=== PATIENT | female | born 1960 | race Caucasian/White ===

== ENCOUNTER 2018-10-28 10:41 | Inpatient (IN) | payer OTHER ==
[2018-10-28 12:41] LABS: Hemoglobin A1c 4.9 % (4.0-6.0)
[2018-10-28 12:47] LABS: Bilirubin Negative (Negative); Blood, Urine Negative (Negative); Clarity CLEAR (Clear); Glucose, Urine (Dipstick) Negative (Negative); Leukocyte Trace (Negative); Nitrite Positive (Negative); Protein, Urine (Dipstick) Negative (Neg-Trace); Specific Gravity, Urine 1.008 (1.002-1.036); Urobilinogen 0.2 mg/dL (0.2-1.0); pH, Urine 6.5 (5.0-9.0)
[2018-10-28 12:48] LABS: #Basophils 0.1 thou/uL (0.0-0.2); #Eosinphils 0.3 thou/uL (0.0-0.7); #Lymphocytes 2.6 thou/uL (1.20-3.40); #Monocytes 0.6 thou/uL (0.11-0.59); #Neutrophils 4.2 thou/uL (1.40-6.50); %Basophils 1.4 % (0.0-1.0); %Eosinophils 3.2 % (0.0-10.0); %Lymphocytes 33.4 % (21.0-51.0); Hemoglobin 13.5 g/dL (12.0-16.0); Mean Platelet Volume 8.8 fL (7.4-10.4); Platelet Count 255 thou/uL (130-400); RBC Distribution Width 13.1 % (11.5-14.5); Red Blood Cell (RBC) Count 3.98 mill/uL (4.20-5.40); White Blood Cell (WBC) Count 7.8 thou/uL (4.8-10.8)
[2018-10-28 12:53] LABS: Bacteria/HPF 4+ HPF (None Seen); Hyaline Casts/LPF 0-3 HYALINE CAST LPF (0-3 Hyaline); Pathc Cast-AUWi Flag 0.14 (0-2.49); RBC/HPF 0-3 HPF (0-3); Squamous Epithelial 0-3 HPF (0-3); WBC/HPF 0-3 HPF (0-3)
[2018-10-28 13:31] LABS: Albumin 3.5 g/dL (3.5-5.0)
[2018-10-28 13:32] LABS: Chloride 104 mmol/L (98-107); Potassium 4.3 mmol/L (3.5-5.1); Sodium 139 mmol/L (136-145)
[2018-10-28 13:33] LABS: Calcium 9.2 mg/dL (7.8-10.44); Magnesium 1.7 mg/dL (1.6-2.6)
[2018-10-28 13:34] LABS: Globulin 4.1 g/dL (2.4-3.5); Glucose 88 mg/dL (70-105); Protein, Total 7.6 g/dL (6.0-8.3)
[2018-10-28 13:35] LABS: Carbon Dioxide 22 mmol/L (22-29)
[2018-10-28 13:36] LABS: Anion Gap 17 mmol/L (10-20); Bilirubin, Total 0.7 mg/dL (0.2-1.2)
[2018-10-28 13:37] LABS: Alkaline Phosphatase 104 U/L (40-150); CRP (Inflammatory) Less than 0.50 mg/dL (= or < 0.5); Calc. Creatinine Clearance 0 mL/min (70-130); Estimated GFR-MDRD 72
[2018-10-28 13:38] LABS: BUN (Urea Nitrogen) 5 mg/dL (9.8-20.1)
[2018-10-28 13:39] LABS: AST (SGOT) 52 U/L (5-34)
[2018-10-28 13:40] LABS: ALT (SGPT) 22 U/L (8-55)
--- NOTE | 2018-10-28 14:36 | RAD ---
RIGHT TOES 3 VIEWS: HISTORY: Pain. COMPARISON: None. FINDINGS: Joint space is preserved. Mild degenerative change of the 1st metatarsophalangeal joint space. No f racture. No cortical irregularity or periosteal reaction. IMPRESSION: Mild degenerative change involving the 1st metatarsophalangeal joint. POS: JUN
--- NOTE | 2018-10-28 14:41 | RAD ---
LEFT GREAT TOE RADIOGRAPHS THREE VIEWS: Date: 10-28-18 Provided Clinical History: FINDINGS: There is a small focus of linear increased density within the soft tissues of the plantar aspect of t he forefoot in the region of the 2nd MTP joint which may reflect a foreign body. There is no evidence for fracture. Alignment appears anatomic. Degenerative changes are seen at the first MTP joint. IMPRESSION: Findings suspicious for foreign body at the plantar aspect of the second MTP joint. POS: JONE
[2018-10-28] MEDS ORDERED: Acetaminophen 325 MG TAB PO PRN (14:56)
[2018-10-28] MEDS ORDERED: Ondansetron ODT 4 MG TAB PO PRN (14:56)
--- NOTE | 2018-10-28 15:14 | PDOC.FPRHP ---
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 Reports previous ulcers with infection on L great toe, being followed by manager membership, Dr. Lyle. Went to his office 1 week ago for current b/l 2nd toe ulcers draining purulent fluid x3 months with gangrene and was told to come to ED. She is just now coming for evaluation. Denies pain. Reports L foot drop at baseline with spasticity, no change in weakness of b/l LE. Does report worsening sensation of b/l LE, not feeling L 1st and 2nd digit or R 1st digit with decreased sensation to remaining toes. No hx of DM. Current tobacco use 1 /2ppd for 40 years. Chronic drinker, 1 liter wine/day. - Allergies/Adverse Reactions Allergies Allergy/AdvReac Type Severity Reaction Status Date / Time No Known Allergies Allergy Verified 01/05/15 22:54 - Home Medications Medication Instructions Recorded Confirmed Type ALPRAZolam [Xanax] 0.5 mg PO PRN PRN 01/05/15 01/05/15 History Gabapentin 300 mg PO PRN PRN 01/05/15 01/05/15 History Metoprolol Tartrate [Lopressor] 100 mg PO DAILY 01/05/15 01/05/15 History buPROPion HCl [Wellbutrin XL] 300 mg PO DAILY 01/05/15 01/05/15 History Aspirin [Ecotrin Regular Strength] 325 mg PO DAILY #0 tab 01/07/15 Rx Atorvastatin Calcium [Lipitor] 80 mg PO QPM #0 tab 01/07/15 Rx Ciprofloxacin [Cipro] 500 mg PO 0600,2000 #0 tab 01/07/15 Rx Folic Acid [Folvite] 1 mg PO DAILY #0 tab 01/07/15 Rx Lisinopril [Zestril] 10 mg PO DAILY #0 tab 01/07/15 Rx Metoprolol Succinate [Toprol XL] 150 mg PO DAILY #0 tab 01/07/15 Rx Comments: Above meds are from last hospitalization- does not know current med doses and did not bring home meds. Reports only taking metoprolol, asa, and wellbutrin. - History PMHx: HTN Alcohol Abuse Peripheral Neuropathy Tobacco Abuse CVA (2016) PSHx: Knee surgery BTL FHx: none Social: ETOH- 1 liter wine per day, last drink yesterday Drug use- 1-2x/wk cannabis use Tobacco- 1/2ppd for 40 yrs Lives with in [place], independent with ADLs - Review of Systems General: denies: fever/chills, night sweats Eyes: denies: eye pain, vision changes ENT: denies: nasal congestion, rhinorrhea Respiratory: denies: cough, congestion, shortness of breath Cardiovascular: denies: chest pain, palpitation, edema, paroxysmal nocturnal dyspnea Gastrointestinal: denies: nausea, vomiting, diarrhea, constipation, abdominal pain Genitourinary: denies: incontinence, dysuria, polyuria Skin: reports: lesions. denies: rashes Musculoskeletal: denies: pain, tenderness, stiffness, swelling, arthritis/ arthralgias Neurological: reports: weakness. denies: numbness, syncope, seizure Psychological: reports: depression. denies: anxiety - Vital signs BP: 144/93 HR: 84 RR: 16 Tmax: 98.8 Pox: 97% on RA Wt: 77kg - Physical Exam Constitutional: NAD, awake, alert and oriented, well developed HEENT: normocephalic and atraumatic, PERRLA, EOMI, grossly normal hearing -HEENT: poor dentition, beefy red tongue Neck: supple Chest: no-tender to palpation Heart: RRR, normal S1/S2, no murmurs/rubs/gallops, pulses present, no edema -Heart: 2+ pedal pulses b/l Lungs: CTAB, no respiratory distress, good air movement Abdomen: soft, non-tender, bowel sounds present, no masses/distention, no hernias Musculoskeletal: normal structure, ROM grossly normal -Musculoskeletal: Spasticity of LLE, strength 5/5 b/l LE -Neurological: decreased sensation all b/l toes, with no sensation of L 1st, 2nd, and R 1st toe -Skin: interdiginous ulcerations of b/l 2nd toes weeping purulunt discharge, erythematous in color with defined borders at metacarpal-phalangeal joint line. Healing medial L great toe ulcer without drainage, mildly erythematous Heme/Lymphatic: no purpura, no petechia Psychiatric: normal mood and affect, intact recent and remote memory FMR H&P: Results - Labs Result Diagrams: 10/28/18 12:12 10/28/18 13:01 Lab results: WBC 7.8 thou/uL (4.8-10.8) 10/28/18 12:12 Hgb 13.5 g/dL (12.0-16.0) 10/28/18 12:12 Hct 39.9 % (36.0-47.0) 10/28/18 12:12 MCV 100.0 fL (78.0-98.0) H 10/28/18 12:12 Plt Count 255 thou/uL (130-400) 10/28/18 12:12 Neutrophils % 54.0 % (42.0-75.0) 10/28/18 12:12 ESR Westergren 43 mm/hr (Less than 30) 10/28/18 12:12 Sodium 139 mmol/L (136-145) 10/28/18 13:01 Potassium 4.3 mmol/L (3.5-5.1) 10/28/18 13:01 Chloride 104 mmol/L (98-107) 10/28/18 13:01 Carbon Dioxide 22 mmol/L (22-29) 10/28/18 13:01 BUN 5 mg/dL (9.8-20.1) L 10/28/18 13:01 Creatinine 0.81 mg/dL (0.6-1.1) 10/28/18 13:01 Glucose 88 mg/dL (70-105) 10/28/18 13:01 Calcium 9.2 mg/dL (7.8-10.44) 10/28/18 13:01 Total Bilirubin 0.7 mg/dL (0.2-1.2) 10/28/18 13:01 AST 52 U/L (5-34) H 10/28/18 13:01 ALT 22 U/L (8-55) 10/28/18 13:01 Alkaline Phosphatase 104 U/L (40-150) 10/28/18 13:01 C-Reactive Protein Less than 0.50 mg/dL (= or < 0.5) 10/28/18 13:01 Serum Total Protein 7.6 g/dL (6.0-8.3) 10/28/18 13:01 Albumin 3.5 g/dL (3.5-5.0) 10/28/18 13:01 Urine Ketones Negative mg/dL (Negative) 10/28/18 12:29 Urine Blood Negative (Negative) 10/28/18 12:29 Urine Nitrite Positive (Negative) H 10/28/18 12:29 Ur Leukocyte Esterase Trace (Negative) H 10/28/18 12:29 Urine RBC 0-3 HPF (0-3) 10/28/18 12:29 Urine WBC 0-3 HPF (0-3) 10/28/18 12:29 Ur Squamous Epith Cells 0-3 HPF (0-3) 10/28/18 12:29 Urine Bacteria 4+ HPF (None Seen) H 10/28/18 12:29 - Radiology Interpretation Other Status: image reviewed by me Additional comment: Xray of b/l toes- no apparent osteo, foreign body of L MTP joint. FMR H&P: A/P - Problem List (1) Gangrene of left foot Current Visit: Yes Status: Acute Code(s): I96 - GANGRENE, NOT ELSEWHERE CLASSIFIED (2) Foot ulcer Current Visit: Yes Status: Acute Code(s): L97.509 - NON-PRESSURE CHRONIC ULCER OTH PRT UNSP FOOT W UNSP SEVERITY (3) Peripheral neuropathy Current Visit: Yes Status: Acute Code(s): G62.9 - POLYNEUROPATHY, UNSPECIFIED (4) Depression Current Visit: No Status: Acute Code(s): F32.9 - MAJOR DEPRESSIVE DISORDER, SINGLE EPISODE, UNSPECIFIED (5) ETOH abuse Current Visit: No Status: Acute Code(s): F10.10 - ALCOHOL ABUSE, UNCOMPLICATED (6) Hyperlipidemia Current Visit: No Status: Acute Code(s): E78.5 - HYPERLIPIDEMIA, UNSPECIFIED (7) Hypertension Current Visit: No Status: Acute Code(s): I10 - ESSENTIAL (PRIMARY) HYPERTENSION (8) UTI (urinary tract infection) Current Visit: No Status: Acute (9) Tobacco abuse Current Visit: No Status: Acute Code(s): Z72.0 - TOBACCO USE (10) Cannabis abuse Current Visit: Yes Status: Acute Code(s): F12.10 - CANNABIS ABUSE, UNCOMPLICATED - Plan 58yo F with gangrene and b/l foot ulcers. Gangrene with infected b/l 2nd toe ulcers: 6mos onset, no previous abx treatment, appears infected with purulent drainage and surrounding cellulitis, no s/sx sepsis - consult Gen Sx for surgical evaluation - cx wound and start broad spec Abx, Vanc and Zosyn - SUSIE's to r/o blood flow issue - likely 2/2 neuropathy, ordered b12, folate, TUCKER, and RPR - Wound care consult Peripheral Neuropathy: Not on any home pain medication - continue to monitor for pain and do workup as above. - could be 2/2 chronic alcoholism Macrocytosis likely 2/2 Alcohol Abuse - b12, folate pending - ASE protocol in place, no hx of DT's - counseled on cessation - banana bag x1, then daily MV - consult regional refrigerated cdl truck driver HTN: - takes metoprolol at home, unk dose, awaiting med rec - monitor and continue home meds Tobacco Abuse: - prn nicotine patch - counseled on cessation Depression: - continue home wellbutrin HLD: - not currently taking any meds - restart high int statin Cannabis Abuse: - middle school counselor on cessation - UDS pending Hx of CVA with residual LUE and LLE deficit - continue daily ASA - restart statin IVF: LR at 100 Diet: NPO pending surgical eval Code: Full DVT PPx: Lovenox Dispo: Likely stay 2-3 days for surgical evaluation and cultures to result for optimal abx management. FMR H&P: Upper Level - Plan Date/Time: 10/28/18 1510 I, [], have evaluated this patient and agree with findings/plan as outlined by paid internship resident. Pertinent changes/additions are listed here.
[2018-10-28] MEDS ORDERED: Multivitamins, Adult 10 ML, Folic Acid 1 MG, Thiamine HCl 100 MG in Dextrose 5 %-0.45 %... IV SCH (15:15)
[2018-10-28 16:21] LABS: Syphilis Antibody Nonreactive (Nonreactive); Syphilis Antibody Index 0.07 S/CO (<1.00 Non-Reactive)
[2018-10-28] MEDS ORDERED: Piperacillin/Tazobactam 2.25 GM VIAL ONE (17:10)
[2018-10-28] MEDS: Lactated Ringer's 1,000 ML IV SCH (19:17)
[2018-10-28] MEDS: Nicotine 14 MG PATCH TD SCH (19:17)
[2018-10-28] MEDS: Vancomycin HCl 1 GM in Premix Bag 1 BAG IVPB SCH (19:17)
[2018-10-28 19:27] LABS: Amphetamine Not Detected (NotDetected); Barbiturates Screen Not Detected (NotDetected); Benzodiazepine Screen Not Detected (NotDetected); Cocaine Metabolite Screen Not Detected (NotDetected); Medtox Control Line Valid? VALID (VALID); Medtox Reader # READER 1; Methadone Not Detected (NotDetected); Methamphetamine Not Detected (NotDetected); Opiate Screen Not Detected (NotDetected); Oxycodone Screen Not Detected (NotDetected); Phencyclidine (PCP) Not Detected (NotDetected); THC/Cannabinoid Screen Not Detected (NotDetected); Tricyclic Screen Not Detected (NotDetected)
[2018-10-28] MEDS: Atorvastatin Calcium 40 MG TAB PO SCH ×2 (19:52→20:02)
[2018-10-28 19:53] VITALS: BMI 25.8
[2018-10-28] MEDS: Piperacillin/Tazobactam 2.25 GM in Sodium Chloride 0.9% 100 ML IVPB SCH (20:51)
[2018-10-29] MEDS: Lactated Ringer's 1,000 ML IV SCH (00:38)
[2018-10-29] MEDS: Piperacillin/Tazobactam 2.25 GM in Sodium Chloride 0.9% 100 ML IVPB SCH (05:23)
[2018-10-29] MEDS: Vancomycin HCl 1 GM in Premix Bag 1 BAG IVPB SCH ×2 (06:07→16:35)
--- NOTE | 2018-10-29 06:14 | PDOC.FM ---
- Subjective Subjective: Patient feeling well this AM. Has no complaints. NAEO. Denies cp, foot pain, n /v/c/d, anxiety or tremors. - Objective MAR Reviewed: Yes Vital Signs & Weight: Vital Signs (12 hours) Temp Pulse Resp BP Pulse Ox 10/28/18 23:47 98.4 F 82 16 133/85 98 10/28/18 20:00 100 10/28/18 19:48 98.5 F 83 12 139/83 100 Weight Weight 81.647 kg I&O: 10/27/18 10/28/18 10/29/18 06:59 06:59 06:59 Intake Total 2019 Balance 2019 Result Diagrams: 10/29/18 06:34 10/28/18 13:01 Phys Exam - Physical Examination Constitutional: NAD HEENT: moist MMs Respiratory: no wheezing, no rales, clear to auscultation bilateral Cardiovascular: RRR, no significant murmur Gastrointestinal: soft, non-tender, no distention, positive bowel sounds Musculoskeletal: no edema, pulses present Neurological: moves all 4 limbs Psychiatric: normal affect, A&O x 3 Deviation from normal: wounds dressed without drainage, mild LLE maculopapular rash Dx/Plan (1) Gangrene of left foot Code(s): I96 - GANGRENE, NOT ELSEWHERE CLASSIFIED Status: Acute (2) Foot ulcer Code(s): L97.509 - NON-PRESSURE CHRONIC ULCER OTH PRT UNSP FOOT W UNSP SEVERITY Status: Acute (3) Peripheral neuropathy Code(s): G62.9 - POLYNEUROPATHY, UNSPECIFIED Status: Acute (4) Depression Code(s): F32.9 - MAJOR DEPRESSIVE DISORDER, SINGLE EPISODE, UNSPECIFIED Status : Acute (5) ETOH abuse Code(s): F10.10 - ALCOHOL ABUSE, UNCOMPLICATED Status: Acute (6) Hyperlipidemia Code(s): E78.5 - HYPERLIPIDEMIA, UNSPECIFIED Status: Acute (7) Hypertension Code(s): I10 - ESSENTIAL (PRIMARY) HYPERTENSION Status: Acute (8) UTI (urinary tract infection) Status: Acute (9) Tobacco abuse Code(s): Z72.0 - TOBACCO USE Status: Acute (10) Cannabis abuse Code(s): F12.10 - CANNABIS ABUSE, UNCOMPLICATED Status: Acute - Plan Plan: 8yo F with gangrene and b/l foot ulcers. Gangrene with infected b/l 2nd toe ulcers: 6mos onset, no previous abx treatment, appears infected with purulent drainage and surrounding cellulitis, no s/sx sepsis - consult Podiatry for surgical evaluation - continue broad spec Abx, Vanc and Zosyn - wound cx pending - SUSIE's to r/o blood flow issue although not suspected since pulses palpable - likely 2/2 neuropathy, ordered b12 (wnl), folate, TUCKER, and RPR (negative) - foreign body of L MTP soft tissue on Xray, Gen sx consulted, appreciate recs - Wound care consult Peripheral Neuropathy: Not on any home pain medication - continue to monitor for pain and do workup as above. - could be 2/2 chronic alcoholism Macrocytosis likely 2/2 Alcohol Abuse - b12 wnl - folate pending - ASE protocol in place, no hx of DT's, no s/sx of withdrawal - counseled on cessation - banana bag x1, then daily MV - consult mold builder Asymptomatic Bacteruria: UA suggestive of UTI with + nitrites, trace LE, and 4+ bacteriuria, pt asymptomatic - likely bug being covered by broad spectrum abx for wounds although does not necessarily need tx since asymptomatic HTN: - takes metoprolol at home, continue Tobacco Abuse: - prn nicotine patch - counseled on cessation Depression: - continue home wellbutrin HLD: - not currently taking any meds - restart high int statin, pt refused medication Cannabis Abuse: - drug abuse counselor on cessation - UDS negative Hx of CVA with residual LUE and LLE deficit - continue daily ASA - restart statin IVF: SL Diet: NPO pending surgical eval Code: Full DVT PPx: Lovenox Dispo: Likely stay 2-3 days for surgical evaluation and cultures to result for optimal abx management. Addendum - Attending - Attending Attestation Date/Time: 10/29/18 9562 I personally evaluated the patient and discussed the management with Dr. Schafer. I agree with the History, Examination, Assessment and Plan documented above with any addition or exceptions noted below. no pain. Vitals stable. Toes stable. Continue IV abx's. SUSIE normal. Suspected ETOH related neuropathy and distal vascular insult. Embolic disease seems unlikely in symmetrical nature of lesions. No murmur appreciated. to be evaluated by Podiatry for possible surgical tx.
[2018-10-29 07:37] LABS: Hemoglobin 12.1 g/dL (12.0-16.0); Mean Corpuscular HGB CONC 33.6 g/dL (32.0-36.0); Mean Corpuscular Hemoglobin 33.9 pg (27.0-31.0); Mean Platelet Volume 7.9 fL (7.4-10.4); Platelet Count 217 thou/uL (130-400); RBC Distribution Width 12.8 % (11.5-14.5); Red Blood Cell (RBC) Count 3.59 mill/uL (4.20-5.40)
[2018-10-29] MEDS: Enoxaparin Sodium 40 MG/0.4 ML SYRINGE SC SCH ×2 (07:44→16:39)
[2018-10-29 08:39] LABS: Band 2 % (5-11); Eosinophils 4 % (0-10); Lymphocytes 29 % (21-51); MDiff Complete? YES; Macrocytosis SLIGHT = 6-15 cells (100X) (0-5/hpf); Monocytes 4 % (0-10); Neutrophil 61 % (42-75); Nucleated RBC 1 % (0); Platelet Morphology Comment Appears Adequate
[2018-10-29] MEDS ORDERED: Bupropion 150 MG XL TAB PO SCH (09:00)
[2018-10-29] MEDS ORDERED: Cyanocobalamin (Vitamin B-12) 1,000 MCG TAB PO SCH (09:00)
[2018-10-29] MEDS ORDERED: Multivitamin W/ Minerals 1 TAB PO SCH (09:00)
[2018-10-29] MEDS ORDERED: Metoprolol Tartrate 100 MG TAB PO SCH (09:00)
[2018-10-29] MEDS ORDERED: Folic Acid 1 MG TAB PO SCH (09:00)
[2018-10-29] MEDS ORDERED: Aspirin 325 MG TAB PO SCH (09:00)
[2018-10-29] MEDS: Nicotine 14 MG PATCH TD SCH (09:07)
[2018-10-29] MEDS: Piperacillin/Tazobactam 3.375 GM in Sodium Chloride 0.9% 100 ML IVPB SCH ×3 (12:48→23:54)
[2018-10-29] MEDS: Gabapentin 300 MG CAP PO PRN ×2 (12:56→20:59)
[2018-10-29 15:19] LABS: Folate,Hemolysate 401.6 ng/mL (Not Estab.); Hematocrit 37.4 % (34.0-46.6); RBC Folate Test Component 1074 ng/mL (>498)
[2018-10-29 17:26] LABS: Vancomycin, Trough 13.4 ug/mL
[2018-10-29] MEDS ORDERED: Melatonin 3 MG TAB PO PRN (19:01)
[2018-10-29] MEDS: Aspirin 325 MG TAB PO SCH (19:53)
[2018-10-29] MEDS: Folic Acid 1 MG TAB PO SCH (19:53)
[2018-10-29] MEDS: Atorvastatin Calcium 40 MG TAB PO SCH ×2 (19:53→20:55)
[2018-10-29] MEDS: Metoprolol Tartrate 100 MG TAB PO SCH (19:54)
[2018-10-29] MEDS: Multivitamin W/ Minerals 1 TAB PO SCH (19:54)
[2018-10-29] MEDS: Bupropion 150 MG XL TAB PO SCH (20:38)
[2018-10-30] MEDS: Piperacillin/Tazobactam 3.375 GM in Sodium Chloride 0.9% 100 ML IVPB SCH ×3 (05:00→17:36)
[2018-10-30] MEDS: Metoprolol Tartrate 100 MG TAB PO SCH (05:09)
[2018-10-30] MEDS: Vancomycin HCl 1 GM in Premix Bag 1 BAG IVPB SCH ×2 (05:48→17:36)
--- NOTE | 2018-10-30 06:29 | PDOC.FM ---
- Subjective Subjective: Pt seen after surgical amputation of b/l 2nd digits. She is doing well. She has no pain at the time. NAEO reported by nursing staff. Denies CP, VILLAGOMEZ, fever/ chills, pain. - Objective MAR Reviewed: Yes Vital Signs & Weight: Vital Signs (12 hours) Temp Pulse Resp BP BP Pulse Ox 10/30/18 04:00 98.3 F 75 18 138/84 138/84 98 10/30/18 01:00 98.1 F 76 16 130/82 98 10/30/18 00:00 130/82 10/29/18 21:00 98.3 F 85 16 122/84 97 10/29/18 20:00 122/84 97 Weight Admit Weight 81.647 kg Weight 81.647 kg I&O: 10/28/18 10/29/18 10/30/18 06:59 06:59 06:59 Intake Total 2019 1119 Balance 20190 Result Diagrams: 10/29/18 06:34 10/28/18 13:01 Phys Exam - Physical Examination Constitutional: NAD HEENT: moist MMs Musculoskeletal: no edema dressing in place over b/l 2nd digits Neurological: moves all 4 limbs Psychiatric: normal affect, A&O x 3 Deviation from normal: b/l 1st digits with decrease in erythema, still with some callus -: and healing ulcers. Dx/Plan (1) Gangrene of left foot Code(s): I96 - GANGRENE, NOT ELSEWHERE CLASSIFIED Status: Acute (2) Foot ulcer Code(s): L97.509 - NON-PRESSURE CHRONIC ULCER OTH PRT UNSP FOOT W UNSP SEVERITY Status: Acute (3) Peripheral neuropathy Code(s): G62.9 - POLYNEUROPATHY, UNSPECIFIED Status: Acute (4) Depression Code(s): F32.9 - MAJOR DEPRESSIVE DISORDER, SINGLE EPISODE, UNSPECIFIED Status : Acute (5) ETOH abuse Code(s): F10.10 - ALCOHOL ABUSE, UNCOMPLICATED Status: Acute (6) Hyperlipidemia Code(s): E78.5 - HYPERLIPIDEMIA, UNSPECIFIED Status: Acute (7) Hypertension Code(s): I10 - ESSENTIAL (PRIMARY) HYPERTENSION Status: Acute (8) UTI (urinary tract infection) Status: Acute (9) Tobacco abuse Code(s): Z72.0 - TOBACCO USE Status: Acute (10) Cannabis abuse Code(s): F12.10 - CANNABIS ABUSE, UNCOMPLICATED Status: Acute - Plan Plan: 8yo F with gangrene and b/l foot ulcers. Gangrene with infected b/l 2nd toe ulcers: 6mos onset, no previous abx treatment, appears infected with purulent drainage and surrounding cellulitis, no s/sx sepsis - s/p b/l 2nd digit amputation this am by podiatry - continue broad spec Abx, Vanc and Zosyn - wound cx pending, prelim growing psuedomonas - SUSIE's 1.1, wnl - likely 2/2 neuropathy, ordered b12 (wnl), folate (wnl), TUCKER (pending), and RPR (negative) - foreign body of L MTP soft tissue on Xray, Gen sx consulted, appreciate recs - Wound care consult Peripheral Neuropathy: Not on any home pain medication - continue to monitor for pain and do workup as above. - could be 2/2 chronic alcoholism Macrocytosis likely 2/2 Alcohol Abuse - b12 wnl, folate wnl, likely 2/2 bone marrow suppression from chronic alcohol abuse - ASE protocol in place, no hx of DT's, no s/sx of withdrawal - counseled on cessation - daily MV - consult manager business operations Asymptomatic Bacteruria: UA suggestive of UTI with + nitrites, trace LE, and 4+ bacteriuria, pt asymptomatic - likely bug being covered by broad spectrum abx for wounds although does not necessarily need tx since asymptomatic HTN: - takes metoprolol at home, continue Tobacco Abuse: - prn nicotine patch - counseled on cessation Depression: - continue home wellbutrin HLD: - continue high int statin, started during this hospital stay Cannabis Abuse: - risk reduction counselor on cessation - UDS negative Hx of CVA with residual LUE and LLE deficit - continue daily ASA - restart statin IVF: SL Diet: HH Code: Full DVT PPx: Lovenox Dispo: pending final culture results and podiatry recs
[2018-10-30] MEDS ORDERED: Bupivacaine PF 0.5% 30 ML VIAL ONE (06:43)
[2018-10-30] MEDS ORDERED: Bacitracin Zinc Ointment 30 gm TUBE ONE (06:43)
[2018-10-30] MEDS ORDERED: Promethazine HCl 25 MG/ML VIAL SLOW IVP PRN (08:04)
[2018-10-30] MEDS ORDERED: Ondansetron HCl/PF 4 MG/2 ML Vial IVP PRN (08:04)
[2018-10-30] MEDS ORDERED: Promethazine HCl 25 MG/ML VIAL IM PRN (08:04)
[2018-10-30] MEDS: Cyanocobalamin (Vitamin B-12) 1,000 MCG TAB PO SCH (08:44)
[2018-10-30] MEDS: Enoxaparin Sodium 40 MG/0.4 ML SYRINGE SC SCH (08:45)
[2018-10-30] MEDS ORDERED: Aspirin 325 MG TAB PO SCH (09:00)
[2018-10-30] MEDS ORDERED: Ondansetron PF 4 MG/2 ML Vial ONE (13:02)
[2018-10-30] MEDS ORDERED: PROPOFOL 200 MG/20 ML VIAL ONE (13:02)
[2018-10-30] MEDS ORDERED: Dexamethasone 20 MG/5 ML VIAL ONE (13:02)
--- NOTE | 2018-10-30 14:06 | RAD ---
LEFT FOOT 2 VIEWS: Date: 10/30/18 HISTORY: Foot pain. Toe amputation. FINDINGS/IMPRESSION: Lisfranc joint alignment is anatomic. Postoperative changes of second toe, including amputation at th e mid shaft of the proximal phalanx. Immediately medial to the base of the proximal phalanx is a thin linear 0.3 cm ossific fragment which may represent a bone chip from the surgery. It is at the planta r surface based on the oblique view. Lateral view is not included. No metallic foreign bodies are apparent. POS: JONE
--- NOTE | 2018-10-30 14:54 | CON ---
DATE OF CONSULTATION: 10/30/2018 REASON FOR CONSULTATION: Toe inflammatory process. HISTORY OF PRESENT ILLNESS: A 58-year-old who has a history of hypertension, chronic smoking, alcoholism, neuropathy who developed inflammatory process, left second toe, which started a few months before. The patient is followed by Dr. Lyle and about a week before admission, she was seen in his office with draining ulcers of the second toe. There is evidence of gangrene and now she is admitted for amputation. Denies any headaches, visual symptoms, sore throat, odynophagia, or dysphagia. No cough or sputum production. No chest pain. No abdominal pain. No diarrhea. No genitourinary symptoms. PAST MEDICAL HISTORY: Hypertension, alcoholism, neuropathy, smoking, prior CVA with left hemiparesis. PAST SURGICAL HISTORY: Knee arthroscopy. FAMILY HISTORY: Not contributory. SOCIAL HISTORY: Drinks daily, smokes a half a pack a day for many years. CURRENT MEDICATIONS: 1. P.r.n. medications. 2. Wellbutrin. 3. Lovenox. 5. Melatonin. 6. Lopressor. 7. Zofran. 8. Zosyn. 9. Vancomycin. PHYSICAL EXAMINATION: VITAL SIGNS: Essentially normal. She is afebrile. SKIN: Remarkable for the inflammatory changes, second toe with ulceration medial aspect, distal second toe swelling all the way to the MPJ skin site. A few shallow ulcerations in the other toes. The second toe has a gangrenous ulcer at the base of the tip. Skin hyperkeratosis. Some macerations in the intertriginous area with early inflammatory changes similar to the second toe left side. LYMPHS: No lymphadenopathy. HEENT: Ocular movements conjugate. She has numerous teeth in place with some missing and quite a bit of gum disease. NECK: Supple. No jugular venous distention. LUNGS: Symmetric clear breath sounds. HEART: S1 and S2. Regular rate. No S3 or S4. ABDOMEN: Soft, not distended or tender. No ascites. No bladder distention. No genital abnormalities. MUSCULOSKELETAL: No joint inflammatory process outside the involved area. Pulses are 1+ in dorsalis pedis. Capillary refill is normal. NEUROLOGIC: She moves extremities with some limitations on the left side from the previous CVA. She is awake and oriented. Follows commands. LABORATORY DATA AND DIAGNOSTIC STUDIES: White cell count 7.8, hemoglobin 13, platelets 245, with normal differential. Chemistry with fairly normal results except for AST 52, globulin 4.1. Urinalysis fairly unremarkable. Toxicology negative for the tested substances. Serology; syphilis nonreactive. Microbiology, we have Proteus mirabilis from the foot with medel susceptibility. We have an imaging study with toe x-ray from October 28 with possible foreign body at the plantar aspect of second MTP joint on the left side. ASSESSMENT: Alcoholism, neuropathy with inflammatory process, left second toe with distal gangrene. The patient is going for amputation scheduled by Dr. Lyle tomorrow, and we will follow up the culture results and define antimicrobial therapy according to the margin of amputation. She seems to have proper vascular supply for healing. Subsequent management will depend on the margin of amputation and types of organisms isolated from the sample. Job ID: [id number] MTDD
[2018-10-30] MEDS: Nicotine 14 MG PATCH TD SCH (15:59)
--- NOTE | 2018-10-30 16:56 | CON ---
DATE OF CONSULTATION: 10/29/2018 TIME: The patient was seen at 12 noon. HISTORY OF PRESENT ILLNESS: The patient was sleeping in bed and was easily aroused. The patient has been getting IV antibiotics. The patient has had no systemic complaints or problem. The patient was instructed to go to the hospital when I saw her last Sunday and she reported to hospital on the . PHYSICAL EXAMINATION: The patient has gangrene on the left second digit. The right second digit has cellulitis and ulcer on the distal aspect of second toe. There is a foul odor on the left toe. Both toes have some drainage and weeping. The patient has good palpable pulses 2/4 bilaterally. The patient has neuropathy and significant decreased sensation in the digits bilaterally. ASSESSMENT AND PLAN: 1. The patient has been cleared for surgical intervention. 2. The patient was consented for amputation of bilateral second digits. 3. I discussed with the patient, I am not clear why the second toe is in this. She was advised to get into a smoking cessation class. 4. Dr. Olvera has been consulted for IV antibiotics. 5. The patient will be made n.p.o. past midnight tonight. Job ID: [id number]
[2018-10-30] MEDS: Folic Acid 1 MG TAB PO SCH (20:21)
[2018-10-30] MEDS: Multivitamin W/ Minerals 1 TAB PO SCH (20:21)
[2018-10-30] MEDS: Bupropion 150 MG XL TAB PO SCH (20:21)
[2018-10-30] MEDS: Atorvastatin Calcium 40 MG TAB PO SCH (20:21)
[2018-10-30] MEDS: Aspirin 325 MG TAB PO SCH (20:21)
[2018-10-31] MEDS: Piperacillin/Tazobactam 3.375 GM in Sodium Chloride 0.9% 100 ML IVPB SCH ×3 (00:37→11:45)
[2018-10-31 06:03] LABS: Vancomycin, Trough 15.4 ug/mL
[2018-10-31] MEDS: Vancomycin HCl 1 GM in Premix Bag 1 BAG IVPB SCH (06:27)
--- NOTE | 2018-10-31 06:44 | PDOC.FM ---
- Subjective Subjective: Pt doing well this am. NAEO. Pain is worse today but just took some tylenol. She ate breakfast without problems. She has not yet been out of bed since surgery. Denies CP, VILLAGOMEZ, n/v, anxiety, or tremors. - Objective MAR Reviewed: Yes Vital Signs & Weight: Vital Signs (12 hours) Temp Pulse Resp BP BP Pulse Ox 10/31/18 04:00 152/96 H 10/31/18 03:00 98.2 F 87 16 152/96 H 97 10/31/18 00:00 98.8 F 81 16 149/84 H 149/84 H 97 10/30/18 21:00 98.1 F 81 18 128/79 97 10/30/18 20:00 128/79 97 Weight Admit Weight 81.647 kg Weight 81.647 kg I&O: 10/29/18 10/30/18 10/31/18 06:59 06:59 06:59 Intake Total 2019 1119 2790 Output Total 800 Balance 2019 1119 1989 Result Diagrams: 10/29/18 06:34 10/28/18 13:01 Phys Exam - Physical Examination Constitutional: NAD HEENT: moist MMs Respiratory: no wheezing, no rales, clear to auscultation bilateral Cardiovascular: RRR trace edema surrounding dressing of b/l feet Neurological: moves all 4 limbs great toe still without sensation b/l Psychiatric: A&O x 3 Deviation from normal: wounds on great toes in similar appearance as yesterday, callus intact Dx/Plan (1) Gangrene of left foot Code(s): I96 - GANGRENE, NOT ELSEWHERE CLASSIFIED Status: Acute (2) Foot ulcer Code(s): L97.509 - NON-PRESSURE CHRONIC ULCER OTH PRT UNSP FOOT W UNSP SEVERITY Status: Acute (3) Peripheral neuropathy Code(s): G62.9 - POLYNEUROPATHY, UNSPECIFIED Status: Acute (4) Depression Code(s): F32.9 - MAJOR DEPRESSIVE DISORDER, SINGLE EPISODE, UNSPECIFIED Status : Acute (5) ETOH abuse Code(s): F10.10 - ALCOHOL ABUSE, UNCOMPLICATED Status: Acute (6) Hyperlipidemia Code(s): E78.5 - HYPERLIPIDEMIA, UNSPECIFIED Status: Acute (7) Hypertension Code(s): I10 - ESSENTIAL (PRIMARY) HYPERTENSION Status: Acute (8) UTI (urinary tract infection) Status: Acute (9) Tobacco abuse Code(s): Z72.0 - TOBACCO USE Status: Acute (10) Cannabis abuse Code(s): F12.10 - CANNABIS ABUSE, UNCOMPLICATED Status: Acute - Plan Plan: 8yo F with gangrene and b/l foot ulcers. Gangrene with infected b/l 2nd toe ulcers: 6mos onset, no previous abx treatment, appears infected with purulent drainage and surrounding cellulitis, no s/sx sepsis - s/p b/l 2nd digit amputation 10/30 by podiatry - continue broad spec Abx, Vanc and Zosyn - wound cx pending, prelim growing psuedomonas - SUSIE's 1.1, wnl - likely 2/2 neuropathy, ordered b12 (wnl), folate (wnl), TUCKER (pending), and RPR (negative) - foreign body of L MTP soft tissue on Xray, Gen sx consulted, appreciate recs - Wound care consult Peripheral Neuropathy: Not on any home pain medication - continue to monitor for pain and do workup as above. - could be 2/2 chronic alcoholism Macrocytosis likely 2/2 Alcohol Abuse - b12 wnl, folate wnl, likely 2/2 bone marrow suppression from chronic alcohol abuse - ASE protocol in place, no hx of DT's, no s/sx of withdrawal - counseled on cessation - daily MV - consult horologist Asymptomatic Bacteruria: UA suggestive of UTI with + nitrites, trace LE, and 4+ bacteriuria, pt asymptomatic - likely bug being covered by broad spectrum abx for wounds although does not necessarily need tx since asymptomatic HTN: - takes metoprolol at home, elevated to 150's/90's - discuss medication change to lisinopril 10mg with pt. 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
--- NOTE | 2018-10-31 07:57 | OP ---
DATE OF PROCEDURE: 10/30/2018 PREOPERATIVE DIAGNOSES: 1. Left second digit gangrene. 2. Right second digit ulceration with early gangrene. POSTOPERATIVE DIAGNOSES: 1. Left second digit gangrene. 2. Right second digit ulceration with early gangrene. PROCEDURES PERFORMED: 1. Amputation of the right second digit. 2. Amputation of the left second digit. ANESTHESIA: General with local. ESTIMATED BLOOD LOSS: Less than 50 mL. HEMOSTASIS: None used. DESCRIPTION OF PROCEDURE: The patient was taken to the operating room, placed on the operating room table in supine position. After general anesthesia was achieved, local infiltration of total of 12 mL of 0.5% plain Marcaine was performed. The left and right lower extremity were then scrubbed and draped in usual surgical manner. Attention was directed to the right second digit. At the base of the digit proximal to the cellulitis, a fish-mouth incision was made from skin to bone. Using a [place], the soft tissues were freed from the base of the proximal phalanx. Using a power saw, the proximal phalanx was incised. The digit was removed and placed in the back table. After copious lavage of the wound, it was noted that all tissues were healthy and the bone was pared when transected and good bleeding viable tissues noted. The skin flaps were reapproximated with 3-0 nylon suture. After closure, good capillary filling time to the skin flaps noted. Dressings were applied consisting of Xeroform, 4x4 gauze, Carlitos, and an Fady bandage. The patient was fitted with a postoperative shoe on the right foot prior to leaving the operating room. The left second digit amputation was performed, closed, and dressed in the same manner as described for the right foot. The patient tolerated the anesthesia and procedure well. The patient had a good capillary filling time to the flaps after closure. The patient needs to be readmitted for IV antibiotic therapy and await culture and sensitivity results. Under sterile conditions, the patient's left second digit was taken and a deep culture sensitivity specimen was obtained. This was sent for aerobic, anaerobic, and Gram stain. Job ID: [id number]
--- NOTE | 2018-10-31 08:43 | OP ---
DATE OF PROCEDURE: 10/30/2018 POSTOP NOTE: PREOPERATIVE DIAGNOSES: 1. Gangrene, left second digit. 2. Early gangrene changes with ulcer, right second digit. POSTOPERATIVE DIAGNOSES: 1. Gangrene, left second digit. 2. Early gangrene changes with ulcer, right second digit. PROCEDURES PERFORMED: 1. Amputation, left second digit. 2. Amputation, right second digit. ESTIMATED BLOOD LOSS: Less than 50 mL. HEMOSTASIS: None used. SPECIMENS: Deep culture and sensitivity sent from left second digit. COMPLICATIONS: None. Job ID: [id number]
[2018-10-31] MEDS: Cyanocobalamin (Vitamin B-12) 1,000 MCG TAB PO SCH (09:55)
[2018-10-31] MEDS: Enoxaparin Sodium 40 MG/0.4 ML SYRINGE SC SCH (09:55)
[2018-10-31] MEDS ORDERED: traMADol HCl 50 MG TAB PO PRN (10:03)
[2018-10-31] MEDS: Nicotine 14 MG PATCH TD SCH (16:43)
--- NOTE | 2018-10-31 18:23 | PDOC.EVN ---
Event Note - Event Note Event Note: Called to bedside by nursing staff. Pt fell and hit her head after losing her balance. She reports no LOC. She is AOx3 on my exam. She does have a small bump on posterior R occiput that is nontender. She is currently taking ASA but no other blood thinners. Vitals were checked and BP was elevated to 160's systolic and HR was elevated as well. Pt talking in full sentences. HEENT exam reveals PERRLA, EOMI. No abrasions or lacerations noted. I do not think there is any value in head imaging at this time but will continue to monitor the pt for a couple of hours before she is discharged.
[2018-10-31 19:26] VITALS: BP 153/89; TEMP 97.8
[2018-10-31] MEDS ORDERED: Ciprofloxacin 500 MG TAB PO SCH (20:00)
--- NOTE | 2018-11-01 02:20 | DIS ---
DATE OF ADMISSION: 10/28/2018 DATE OF DISCHARGE: 10/31/2018 DISCHARGE ATTENDING: Dr. Sidney Johnson. RESIDENT: Trudy Schafer DO. PROCEDURES/IMAGIN. Toe x-ray bilateral feet with mild degenerative change involving the first metatarsophalangeal joint of the right foot and left foot with findings suspicious for foreign body at the planar aspect of the second metatarsophalangeal joint along with degenerative changes. 2. Foot x-ray performed on 10/30/2018, which showed Lisfranc joint alignment with anatomic and postoperative changes of the second toe including amputation at the mid shaft and a 0.3 cm linear osseous fragment which may represent a bone chip. CONSULTS: 1. Dr. Matt Olvera, Infectious Disease. 2. Dr. Sky Lyle, Podiatry. PRIMARY DIAGNOSES: 1. Left second digit gangrene, status post amputation. 2. Right second digit ulceration with early gangrene. 3. Peripheral neuropathy. 4. Macrocytosis. 5. Alcohol abuse. 6. Asymptomatic bacteria. 7. Hypertension. 8. Tobacco abuse. 9. Depression. 10. Hyperlipidemia. 11. Cannabis abuse. 12. History of cerebrovascular accident with residual left upper extremity and left lower extremity deficit. DISCHARGE MEDICATIONS: 1. Gabapentin 300 mg p.o. t.i.d. p.r.n. 2. Xanax 0.5 mg tablets p.o. daily p.r.n. 3. Aspirin 325 mg daily. 4. Lipitor 80 mg p.o. at bedtime. 5. Wellbutrin 300 mg p.o. at bedtime. 6. Folic acid 1 mg p.o. at bedtime. 7. Lansoprazole 15 mg p.o. at bedtime. 8. Ciprofloxacin 500 mg tablet p.o. b.i.d. x10 days. 9. Lisinopril 10 mg p.o. daily. DISCONTINUED MEDICATIONS: Metoprolol 100 mg p.o. daily. HISTORY OF PRESENT ILLNESS/HOSPITAL COURSE: The patient is a 58-year-old female with past medical history of hypertension, tobacco abuse, alcoholism, peripheral neuropathy of unknown origin, and CVA in 2016 with residual left upper extremity and left lower extremity weakness, presented for evaluation of left second toe discoloration that was started about 6 months ago. She also has previous ulcers with infection on the left great toe and is being followed by pulmonary fellow, Dr. Lyle. On admission, she has obvious second digit gangrene with bilateral ulcers of the second digits, they are weeping purulent drainage. Initial white blood cell count is 7.8 and she is afebrile without tachycardia and no other signs of sepsis. The wound does appear to have some surrounding cellulitis. The patient was started on vancomycin and zosyn for broad spectrum coverage. Etiology of this is unknown, but likely secondary to peripheral neuropathy. ABIs were negative and pulses were bounding in bilateral distal extremities. Evaluation for neuropathy included B12, folate, and RPR TUCKER remains pending at this time. Neuropathy also could be caused by current alcohol abuse, which is a likely cause at this time. Counseled on alcohol cessation and was also placed on protocol for possible withdrawal symptoms. She had no withdrawal symptoms, actually remains stable throughout her stay. The gangrene was discussed with her pulmonary fellow, Dr. Lyle, who saw her in the hospital and did a bilateral second digit amputation on 10/30. Cultures were collected at the wound grew out Proteus with sensitivities to ciprofloxacin. She was placed on ciprofloxacin 500 mg b.i.d. for 10 days with followup with Dr. Lyle on the . Wound care is to be performed by Dr. Lyle. The patient did have PT evaluation and is okay on her feet, but prior to discharge, she did have a fall where she hit her right occiput on the floor. She was alert and oriented with no loss of conscious during this event, evaluated and watched for 2 hours post fall. She was also given ED precautions for return. Of note, the patient does have underlying hypertension and takes metoprolol at home. It is not well controlled with blood pressures remaining in the 150s over 90s. Recommended discontinuation of metoprolol and starting lisinopril. It will need to be titrated up by primary care physician. DISPOSITION: Stable. DISCHARGE INSTRUCTIONS: 1. Location: Home. 2. Diet: Heart healthy. 3. Activity: As tolerated, recommend using walker with walking to gain balance and prevent falls, to bring walker for pickup. 4. Followup: Follow up with Dr. Lyle on the . Follow up with primary care physician in 1 week with home blood pressure measurements to titrate lisinopril dose. Job ID: [id number]
[2018-11-02 16:02] LABS: ANA Symphony (Qualitative) Negative (Negative); ANA Symphony (Quantitative) 0.1 Ratio (< 0.7 Negative); dsDNA IgG Antibody 3.1 IU/mL (<10 Negative)
== END 2018-10-31 18:49 | disposition home or self-care (01) | DRG 256 ==
LOC: ERS 10:41 → T4-A 17:30
PROVIDERS: ADMIT Family Medicine; ATTEND Family Medicine
PROC: 0Y6S0Z1 Detachment at Left 2nd Toe, High, Open Approach (ICD-10-PCS; principal; 2018-10-30)
PROC: 0Y6R0Z1 Detachment at Right 2nd Toe, High, Open Approach (ICD-10-PCS; 2018-10-30)
DX: I96 Gangrene, not elsewhere classified (principal); N39.0 Urinary tract infection, site not specified; I69.354 Hemiplegia and hemiparesis following cerebral infarction affecting left non-dominant side; I10 Essential (primary) hypertension; F32.9 Major depressive disorder, single episode, unspecified; F17.210 Nicotine dependence, cigarettes, uncomplicated; L03.032 Cellulitis of left toe; L03.031 Cellulitis of right toe; L97.519 Non-pressure chronic ulcer of other part of right foot with unspecified severity; D75.89 Other specified diseases of blood and blood-forming organs; G62.9 Polyneuropathy, unspecified; F10.10 Alcohol abuse, uncomplicated; E78.5 Hyperlipidemia, unspecified; F12.10 Cannabis abuse, uncomplicated; Z98.890 Other specified postprocedural states; Z98.51 Tubal ligation status; Z71.41 Alcohol abuse counseling and surveillance of alcoholic
CPT/HCPCS: 36415; 80053; 80202; 80306; 81003; 81015; 82607; 82747; 83036; 83735; 85007; 85025; 85027; 85652; 86038; 86140; 86225; 86780; 87070; 87077; 87186; 87205; 96374; J1100; J1650; J2405; J2543; J2704; J3370; J3411; J7042; J7050; S0020